=== PATIENT | male | born 1940 | race American Indian/Alaskan Native ===

== ENCOUNTER 2017-04-04 08:52 | Emergency (ER) | payer MEDICARE ==
[2017-04-04 09:21] VITALS: BP 107/77
--- NOTE | 2017-04-04 09:28 | Emergency Department Report ---
Chief Complaint: Pain General Stated Complaint: CONSTIPATED Time Seen by Provider: 04/04/17 09:25 - HPI History of Present Illness: elderly ill appearing male states had prost bph before sign weight loss in 1 y thin here w constipation no abd pain no n/v/d no bm in 8 d on mir[facility] concern for [facility] - ROS Review of Systems: see above - Exam Vital Signs: Vital Signs 04/04/17 09:17 Temperature 97.4 F L Pulse Rate 80 Respiratory 16 Rate Blood Pressure 107/77 O2 Sat by Pulse 98 Oximetry MSE screening note: Focused history and physical exam performed. Due to findings the following was ordered: ED Disposition for MSE Condition: Stable
[2017-04-04 10:02] LABS: Basophils % (Auto) 0.2 % (0.0-1.8); Eosinophils % (Auto) 2.4 % (0.0-4.3); Hematocrit 38.6 % (35.5-45.6); Hemoglobin 12.6 gm/dl (11.8-15.2); Mean Corpuscular HGB Conc 33 % (32-34); Mean Corpuscular Hemoglobin 29 pg (28-32); Mean Corpuscular Volume 89 fl (84-94); Platelet Count 196 K/mm3 (140-440); Red Blood Count 4.34 M/mm3 (3.65-5.03); White Blood Count 6.2 K/mm3 (4.5-11.0)
[2017-04-04 10:21] LABS: Alanine Aminotransferase 9 units/L (7-56); Albumin/Globulin Ratio 1.1 %; Alkaline Phosphatase 76 units/L (35-129); Amylase 90 units/L (27-131); Anion Gap 15 mmol/L; BUN/Creatinine Ratio 13.63; Bilirubin,Direct < 0.2 mg/dL (0-0.2); Blood Urea Nitrogen 15 mg/dL (9-20); Calcium 9.7 mg/dL (8.4-10.2); Carbon Dioxide 30 mmol/L (22-30); Chloride 101.9 mmol/L (98-107); Glucose 91 mg/dL (75-100); Lipase 27 units/L (13-60); Potassium 4.6 mmol/L (3.6-5.0); Sodium 142 mmol/L (137-145); Total Protein 7.6 g/dL (6.3-8.2)
--- NOTE | 2017-04-04 11:16 | XRay Report ---
Abdominal series: History: Constipation. Findings: No acute lung changes. No free intraperitoneal air. No bowel distention or wall thickening. No fluid levels. No radiopaque calculus or abnormal calcification. Impression: Essentially negative abdominal series.
--- NOTE | 2017-04-08 19:52 | ED Elopement Review ---
ED Pt Elopement review - Results review Lab results: Laboratory Tests 04/04/17 04/04/17 09:42 09:42 WBC 6.2 RBC 4.34 Hgb 12.6 Hct 38.6 MCV 89 MCH 29 MCHC 33 RDW 14.0 Plt Count 196 Lymph % (Auto) 28.1 [place] % (Auto) 5.3 Eos % (Auto) 2.4 Baso % (Auto) 0.2 Lymph # 1.7 [place] # 0.3 Eos # 0.1 Baso # 0.0 Seg Neutrophils % 64.0 Seg Neutrophils # 3.9 Sodium 142 Potassium 4.6 Chloride 101.9 Carbon Dioxide 30 Anion Gap 15 BUN 15 Creatinine 1.1 Estimated GFR > 60 BUN/Creatinine Ratio 13.63 Glucose 91 Calcium 9.7 Total Bilirubin 0.40 Direct Bilirubin < 0.2 AST 16 ALT 9 Alkaline Phosphatase 76 Total Protein 7.6 Albumin 4.0 Albumin/Globulin Ratio 1.1 Amylase 90 Lipase 27 - Call Back decision Pt Call Back Decision: Call pt to return to ED ANDREW (call back to check on patient)
== END 2017-04-04 20:30 | disposition left against medical advice (07) ==
LOC: ED 08:52
DX: K59.00 Constipation, unspecified (principal); Z53.21 Procedure and treatment not carried out due to patient leaving prior to being seen by health care provider
CPT/HCPCS: 36415; 74022; 80048; 80074; 82150; 83690; 85025

== ENCOUNTER 2018-05-17 08:30 | Emergency (ER) | payer SELFPAY ==
--- NOTE | 2018-05-17 10:49 | Emergency Department Report ---
ED General Adult HPI - General Chief complaint: Nausea/Vomiting/Diarrhea Stated complaint: RIGHT SIDE PAIN/NAUSEA Time Seen by Provider: 05/17/18 10:28 Source: patient Mode of arrival: Ambulatory Limitations: No Limitations - History of Present Illness Initial comments: Patient is a 77-year-old Stateless male with no significant past medical history who is coming in today complaining of some mild nausea this morning. Patient also is complaining of some progressively worsening resting tremor and shuffling gait has been worsening for greater than 1 month. Patient denies any vomiting diarrhea cough cold congestion headache fevers chills neck stiffness dysuria or urinary frequency or abdominal pain or chest pain at this time. [facility] and has an appointment to see his primary care physician coming up soon. - Related Data Previous Rx's Medication Instructions Recorded Last Taken Type ALPRAZolam [Xanax TAB] 0.25 mg PO BID PRN #6 tab 05/17/18 Unknown Rx Ondansetron [Zofran Odt] 4 mg PO Q8HR PRN #6 tab.rapdis 05/17/18 Unknown Rx Allergies Allergy/AdvReac Type Severity Reaction Status Date / Time No Known Allergies Allergy Verified 09/15/16 06:20 ED Review of Systems ROS: Stated complaint: RIGHT SIDE PAIN/NAUSEA Other details as noted in HPI Comment: All other systems reviewed and negative ED Past Medical Hx - Past Medical History Additional medical history: hypotension, constipation - Surgical History Past Surgical History?: No - Social History Smoking Status: Never Smoker Substance Use Type: None - Medications Home Medications: Home Medications Medication Instructions Recorded Confirmed Last Taken Type ALPRAZolam [Xanax TAB] 0.25 mg PO BID PRN #6 tab 05/17/18 Unknown Rx Ondansetron [Zofran Odt] 4 mg PO Q8HR PRN #6 tab.rapdis 05/17/18 Unknown Rx ED Physical Exam - General Limitations: No Limitations General appearance: alert, in no apparent distress - Head Head exam: Present: atraumatic, normocephalic - Eye Eye exam: Present: normal appearance - ENT ENT exam: Present: mucous membranes moist - Neck Neck exam: Present: normal inspection - Respiratory Respiratory exam: Present: normal lung sounds bilaterally. Absent: respiratory distress, wheezes, rales, rhonchi - Cardiovascular Cardiovascular Exam: Present: regular rate, normal rhythm, normal heart sounds. Absent: systolic murmur, diastolic murmur, rubs, gallop - GI/Abdominal GI/Abdominal exam: Present: soft, normal bowel sounds. Absent: distended, tenderness, guarding, rebound - Rectal Rectal exam: Present: deferred - Extremities Exam Extremities exam: Present: normal inspection - Back Exam Back exam: Present: normal inspection - Neurological Exam Neurological exam: Present: alert, oriented X3, CN II-XII intact, abnormal gait (shuffling ), other (resting tremor r>l). Absent: motor sensory deficit - Psychiatric Psychiatric exam: Present: normal affect, normal mood - Skin Skin exam: Present: warm, dry, intact, normal color. Absent: rash ED Course Vital Signs 05/17/18 09:12 Temperature 97.9 F Pulse Rate 82 Respiratory 15 Rate Blood Pressure 114/39 O2 Sat by Pulse 100 Oximetry ED Medical Decision Making - Medical Decision Making Patient most likely has early mild Parkinson's disease. This has not been formally diagnosed however. Patient be referred to [facility]ist [facility] and patient will be discharged home. Patient to give Zofran for mild nausea patient has Critical care attestation.: If time is entered above; I have spent that time in minutes in the direct care of this critically ill patient, excluding procedure time. ED Disposition Clinical Impression: Tremor Disposition: DC-01 TO HOME OR SELFCARE Is pt being admited?: No Does the pt Need Aspirin: No Condition: Stable Instructions: Parkinson's Disease (ED) Additional Instructions: He has not been formally diagnosed with Parkinson's disease however this is most likely given the shuffling gait and resting tremor. Please follow-up with neurology with the [facility] Prescriptions: ALPRAZolam [Xanax TAB] 0.25 mg PO BID PRN #6 tab PRN Reason: Anxiety Ondansetron [Zofran Odt] 4 mg PO Q8HR PRN #6 tab.rapdis PRN Reason: Nausea Referrals: PRIMARY CARE,MD [Primary Care Provider] - 3-5 Days Time of Disposition: 10:48
[2018-05-17 11:02] VITALS: BP 106/50
== END 2018-05-17 10:50 | disposition home or self-care (01) ==
LOC: ED 08:30
DX: R25.1 Tremor, unspecified (principal); R11.2 Nausea with vomiting, unspecified; I95.9 Hypotension, unspecified
CPT/HCPCS: 99282

== ENCOUNTER 2019-11-11 20:02 | Emergency (ER) | payer OTHER ==
[2019-11-12] MEDS ORDERED: ASPIRIN 325 MG TAB PO ONE (02:18)
[2019-11-12 03:01] LABS: Basophils % (Auto) 0.3 % (0.0-1.8); Eosinophils # (Auto) 0.3 K/mm3 (0.0-0.4); Eosinophils % (Auto) 3.2 % (0.0-4.3); Hematocrit 35.3 % (35.5-45.6); Hemoglobin 11.8 gm/dl (11.8-15.2); Lymphocytes # (Auto) 2.2 K/mm3 (1.2-5.4); Lymphocytes % (Auto) 27.5 % (13.4-35.0); Mean Corpuscular HGB Conc 34 % (32-34); Mean Corpuscular Volume 90 fl (84-94); Monocytes # (Auto) 0.5 K/mm3 (0.0-0.8); Monocytes % (Auto) 6.7 % (0.0-7.3); Platelet Count 244 K/mm3 (140-440); Red Blood Count 3.91 M/mm3 (3.65-5.03); Red Cell Distribution Width 13.2 % (13.2-15.2)
--- NOTE | 2019-11-12 03:08 | XRay Report ---
CHEST 1 VIEW 11/12/2019 2:42 AM INDICATION / CLINICAL INFORMATION: Chest Pain. COMPARISON: Acute abdominal series from 04/04/2017. FINDINGS: SUPPORT DEVICES: None. HEART / MEDIASTINUM: No significant abnormality. LUNGS / PLEURA: No significant pulmonary or pleural abnormality. No pneumothorax. ADDITIONAL FINDINGS: No significant additional findings. IMPRESSION: 1. No acute abnormality of the chest. Signer Name: Michael Stephen MD Signed: 11/12/2019 3:04 AM Workstation Name: [id number]
[2019-11-12 03:22] LABS: BUN/Creatinine Ratio 13; Blood Urea Nitrogen 12 mg/dL (9-20); Calcium 9.9 mg/dL (8.4-10.2); Hemolysis Index 3
--- NOTE | 2019-11-12 06:40 | Emergency Department Report ---
ED General Adult HPI - General Chief complaint: Extremity Injury, Lower Stated complaint: SWELLING ON BOTH LEG AND FOOT Time Seen by Provider: 11/12/19 06:17 Source: patient Mode of arrival: Ambulatory Limitations: No Limitations - History of Present Illness Initial comments: The patient presents to the emergency department with a chief complaint of swo llen of his feet. Patient states the symptoms started 10 days ago and have not gone away. Patient states she's never had issues with swelling of his feet. Patient denies shortness of breath with ambulation, chest pain, abdominal pain. -: Sudden Location: lower extremity Radiation: non-radiation Severity scale (0 -10): 1 Quality: aching Consistency: constant Improves with: none Worsens with: none Associated Symptoms: denies other symptoms Treatments Prior to Arrival: none - Related Data Previous Rx's Medication Instructions Recorded Last Taken Type ALPRAZolam [Xanax TAB] 0.25 mg PO BID PRN #6 tab 05/17/18 Unknown Rx Ondansetron [Zofran Odt] 4 mg PO Q8HR PRN #6 tab.rapdis 05/17/18 Unknown Rx hydroCHLOROthiazide [Hctz] 12.5 mg PO QDAY #5 capsule 11/12/19 Unknown Rx Allergies Allergy/AdvReac Type Severity Reaction Status Date / Time No Known Allergies Allergy Verified 09/15/16 06:20 ED Review of Systems ROS: Stated complaint: SWELLING ON BOTH LEG AND FOOT Other details as noted in HPI Constitutional: denies: chills, fever Eyes: denies: eye pain, eye discharge, vision change ENT: denies: ear pain, throat pain Respiratory: denies: cough, shortness of breath, wheezing Cardiovascular: denies: chest pain, palpitations Endocrine: no symptoms reported Gastrointestinal: denies: abdominal pain, nausea, diarrhea Genitourinary: denies: urgency, dysuria Musculoskeletal: denies: back pain, joint swelling, arthralgia Skin: denies: rash, lesions Neurological: denies: headache, weakness, paresthesias Psychiatric: denies: anxiety, depression Hematological/Lymphatic: denies: easy bleeding, easy bruising ED Past Medical Hx - Past Medical History Previous Medical History?: Yes Additional medical history: hypotension, constipation. Parkinson's - Surgical History Past Surgical History?: No - Social History Smoking Status: Never Smoker Substance Use Type: None - Medications Home Medications: Home Medications Medication Instructions Recorded Confirmed Last Taken Type ALPRAZolam [Xanax TAB] 0.25 mg PO BID PRN #6 tab 05/17/18 Unknown Rx Ondansetron [Zofran Odt] 4 mg PO Q8HR PRN #6 tab.rapdis 05/17/18 Unknown Rx hydroCHLOROthiazide [Hctz] 12.5 mg PO QDAY #5 capsule 11/12/19 Unknown Rx ED Physical Exam - General Limitations: No Limitations General appearance: alert, in no apparent distress - Head Head exam: Present: atraumatic, normocephalic - Eye Eye exam: Present: normal appearance, PERRL, EOMI - ENT ENT exam: Present: mucous membranes moist - Neck Neck exam: Present: normal inspection - Respiratory Respiratory exam: Present: normal lung sounds bilaterally. Absent: respiratory distress - Cardiovascular Cardiovascular Exam: Present: regular rate, normal rhythm. Absent: systolic murmur, diastolic murmur, rubs, gallop - GI/Abdominal GI/Abdominal exam: Present: soft, normal bowel sounds. Absent: distended, tenderness - Rectal Rectal exam: Present: deferred - Extremities Exam Extremities exam: Present: pedal edema (bilateral pedal edema) - Back Exam Back exam: Present: normal inspection - Neurological Exam Neurological exam: Present: alert, oriented X3, CN II-XII intact. Absent: motor sensory deficit - Psychiatric Psychiatric exam: Present: normal affect, normal mood - Skin Skin exam: Present: warm, dry, intact, normal color. Absent: rash ED Course Vital Signs 11/11/19 11/11/19 11/12/19 21:04 21:05 02:08 Temperature 98.0 F 97.5 F L Pulse Rate 69 62 Respiratory 18 18 Rate Blood Pressure 146/93 Blood Pressure 117/34 118/58 [Right] O2 Sat by Pulse 98 98 Oximetry 11/12/19 06:59 Temperature Pulse Rate 91 H Respiratory 18 Rate Blood Pressure Blood Pressure 131/78 [Right] O2 Sat by Pulse 99 Oximetry ED Medical Decision Making - Lab Data Result diagrams: 11/12/19 02:32 11/12/19 02:32 Lab Results 11/12/19 11/12/19 11/12/19 Range/Units 02:32 02:32 06:00 WBC 7.9 (4.5-11.0) K/mm3 RBC 3.91 (3.65-5.03) M/mm3 Hgb 11.8 (11.8-15.2) gm/dl Hct 35.3 L (35.5-45.6) % MCV 90 (84-94) fl MCH 30 (28-32) pg MCHC 34 (32-34) % RDW 13.2 (13.2-15.2) % Plt Count 244 (140-440) K/mm3 Lymph % (Auto) 27.5 (13.4-35.0) % [place] % (Auto) 6.7 (0.0-7.3) % Eos % (Auto) 3.2 (0.0-4.3) % Baso % (Auto) 0.3 (0.0-1.8) % Lymph # 2.2 (1.2-5.4) K/mm3 [place] # 0.5 (0.0-0.8) K/mm3 Eos # 0.3 (0.0-0.4) K/mm3 Baso # 0.0 (0.0-0.1) K/mm3 Seg Neutrophils % 62.3 (40.0-70.0) % Seg Neutrophils # 4.9 (1.8-7.7) K/mm3 Sodium 140 (137-145) mmol/L Potassium 4.1 (3.6-5.0) mmol/L Chloride 99.5 (98-107) mmol/L Carbon Dioxide 29 (22-30) mmol/L Anion Gap 16 mmol/L BUN 12 (9-20) mg/dL Creatinine 0.9 (0.8-1.5) mg/dL Estimated GFR > 60 ml/min BUN/Creatinine Ratio 13 % Glucose 97 (75-100) mg/dL Calcium 9.9 (8.4-10.2) mg/dL Troponin T < 0.010 < 0.010 (0.00-0.029) ng/mL NT-Pro-B Natriuret Pep (0-900) pg/mL 11/12/19 Range/Units 06:00 WBC (4.5-11.0) K/mm3 RBC (3.65-5.03) M/mm3 Hgb (11.8-15.2) gm/dl Hct (35.5-45.6) % MCV (84-94) fl MCH (28-32) pg MCHC (32-34) % RDW (13.2-15.2) % Plt Count (140-440) K/mm3 Lymph % (Auto) (13.4-35.0) % [place] % (Auto) (0.0-7.3) % Eos % (Auto) (0.0-4.3) % Baso % (Auto) (0.0-1.8) % Lymph # (1.2-5.4) K/mm3 [place] # (0.0-0.8) K/mm3 Eos # (0.0-0.4) K/mm3 Baso # (0.0-0.1) K/mm3 Seg Neutrophils % (40.0-70.0) % Seg Neutrophils # (1.8-7.7) K/mm3 Sodium (137-145) mmol/L Potassium (3.6-5.0) mmol/L Chloride (98-107) mmol/L Carbon Dioxide (22-30) mmol/L Anion Gap mmol/L BUN (9-20) mg/dL Creatinine (0.8-1.5) mg/dL Estimated GFR ml/min BUN/Creatinine Ratio % Glucose (75-100) mg/dL Calcium (8.4-10.2) mg/dL Troponin T (0.00-0.029) ng/mL NT-Pro-B Natriuret Pep 146.2 (0-900) pg/mL - EKG Data -: EKG Interpreted by Me EKG shows normal: sinus rhythm Rate: bradycardia - Radiology Data Radiology results: report reviewed - Medical Decision Making Discussed results with patient Critical care attestation.: If time is entered above; I have spent that time in minutes in the direct care of this critically ill patient, excluding procedure time. ED Disposition Clinical Impression: Dependent edema, Pedal edema Disposition: DC-01 TO HOME OR SELFCARE Is pt being admited?: No Does the pt Need Aspirin: No Condition: Stable Instructions: Leg Edema (ED) Additional Instructions: return if worse Prescriptions: hydroCHLOROthiazide [Hctz] 12.5 mg PO QDAY #5 capsule Referrals: PRIMARY CARE,MD [Primary Care Provider] - 3-5 Days [facility] [Provider Group] - 3-5 Days [facility] [Provider Group] - 3-5 Days Time of Disposition: 08:28
[2019-11-12 07:01] VITALS: BP 131/78
== END 2019-11-12 09:10 | disposition home or self-care (01) ==
LOC: ED 20:02
DX: R60.9 Edema, unspecified (principal); I95.9 Hypotension, unspecified; Z79.899 Other long term (current) drug therapy
CPT/HCPCS: 36415; 71045; 80048; 83880; 84484; 85025; 93005; 93010

== ENCOUNTER 2021-11-04 00:36 | Emergency (ER) | payer OTHER ==
[2021-11-04 01:51] VITALS: BP 98/71
[2021-11-04] MEDS ORDERED: GENTAMICIN 0.3% OPHTH OINT 3.5 GM OU ONE (02:08)
[2021-11-04] MEDS ORDERED: TETRACAINE 0.5% OPHTH SOLN 4ML OU PRN (02:08)
--- NOTE | 2021-11-04 03:45 | Emergency Department Report ---
ED Eye Problem HPI - General Chief complaint: Eye Problems Stated complaint: EYE INFECTION Source: patient Mode of arrival: Ambulatory Limitations: No Limitations - History of Present Illness Initial comments: Patient is an 81-year-old -[place] male with a history of Parkinson's disease who presents to the ED with complaint of acute onset persistent left eye pain with subconjunctival hemorrhage after a accidentally rubbed his left eye 3 days ago. Patient states that the pain has been persistent and that the redness and the hemorrhage has not resolved. Patient states that he has been applying [id number] eyedrops with no relief. Patient denies vision loss, headache, dizziness, syncope, chest pain or shortness of breath, neck pain, nausea and vomiting, fever and chills. MD chief complaint: eye pain (left eye pain, erythematous conjunction), eye redness -: Sudden, days(s) (3) Location: left eye Place: home If Injury: none Eye Symptoms: redness, pain Severity: mild Severity scale (0 -10): 1 If Pain, Quality: aching Consistency: constant Associated Symptoms: none Treatments Prior to Arrival: OTC eye drops - Related Data Patient Tetanus UTD: Yes Previous Rx's Medication Instructions Recorded Last Taken Type ALPRAZolam [Xanax TAB] 0.25 mg PO BID PRN #6 tab 05/17/18 Unknown Rx Ondansetron [Zofran Odt] 4 mg PO Q8HR PRN #6 tab.rapdis 05/17/18 Unknown Rx hydroCHLOROthiazide [Hctz] 12.5 mg PO QDAY #5 capsule 11/12/19 Unknown Rx Acetaminophen [Tylenol] 500 mg PO Q6HR PRN #30 tablet 11/04/21 Unknown Rx Allergies Allergy/AdvReac Type Severity Reaction Status Date / Time No Known Allergies Allergy Verified 09/15/16 06:20 ED Review of Systems ROS: Stated complaint: EYE INFECTION Other details as noted in HPI Constitutional: denies: chills, fever Eyes: eye pain (Mild left eye pain with discharge), eye discharge (Left eye discharge), other (Left subconjunctival hemorrhage). denies: vision change ENT: denies: ear pain, throat pain, congestion Respiratory: denies: cough, shortness of breath, wheezing Cardiovascular: denies: chest pain, palpitations Endocrine: no symptoms reported Gastrointestinal: denies: abdominal pain, nausea, diarrhea Genitourinary: denies: urgency, dysuria Musculoskeletal: denies: back pain, joint swelling, arthralgia Skin: denies: rash, lesions Neurological: denies: headache, weakness, paresthesias Psychiatric: denies: anxiety, depression Hematological/Lymphatic: denies: easy bleeding, easy bruising ED Past Medical Hx - Past Medical History Previous Medical History?: Yes Additional medical history: hypotension, constipation. Parkinson's - Surgical History Past Surgical History?: Yes - Social History Smoking Status: Never Smoker Substance Use Type: None - Medications Home Medications: Home Medications Medication Instructions Recorded Confirmed Last Taken Type ALPRAZolam [Xanax TAB] 0.25 mg PO BID PRN #6 tab 05/17/18 Unknown Rx Ondansetron [Zofran Odt] 4 mg PO Q8HR PRN #6 tab.rapdis 05/17/18 Unknown Rx hydroCHLOROthiazide [Hctz] 12.5 mg PO QDAY #5 capsule 11/12/19 Unknown Rx Acetaminophen [Tylenol] 500 mg PO Q6HR PRN #30 tablet 11/04/21 Unknown Rx ED Physical Exam - General Limitations: No Limitations General appearance: alert, in no apparent distress - Head Head exam: Present: atraumatic, normocephalic, normal inspection - Eye Eye exam: Present: normal appearance, PERRL, EOMI, other (Erythematous left subconjunctival hemorrhage; normal visual acuity; mildly swollen left upper and lower eyelids with irritation and purulent discharge) Pupils: Present: normal accommodation - ENT ENT exam: Present: normal exam, normal orophraynx, mucous membranes moist, TM's normal bilaterally, normal external ear exam - Neck Neck exam: Present: normal inspection, full ROM. Absent: tenderness - Respiratory Respiratory exam: Present: normal lung sounds bilaterally. Absent: respiratory distress, wheezes, rales, stridor, chest wall tenderness, accessory muscle use, decreased breath sounds, prolonged expiratory - Cardiovascular Cardiovascular Exam: Present: regular rate, normal rhythm, normal heart sounds. Absent: systolic murmur, diastolic murmur, rubs, gallop - GI/Abdominal GI/Abdominal exam: Present: soft, normal bowel sounds. Absent: tenderness, guarding, rebound, hyperactive bowel sounds, hypoactive bowel sounds, organomegaly - Extremities Exam Extremities exam: Present: normal inspection, full ROM, normal capillary refill - Back Exam Back exam: Present: normal inspection, full ROM. Absent: tenderness, CVA tenderness (R), CVA tenderness (L), muscle spasm, paraspinal tenderness, vertebral tenderness - Neurological Exam Neurological exam: Present: alert, oriented X3, CN II-XII intact, normal gait, reflexes normal - Psychiatric Psychiatric exam: Present: normal affect, normal mood - Skin Skin exam: Present: warm, dry, intact, normal color. Absent: rash ED Course Vital Signs 11/04/21 11/04/21 01:43 04:25 Temperature 98.0 F Pulse Rate 74 77 Respiratory 18 20 Rate Blood Pressure 98/71 [Right] O2 Sat by Pulse 98 97 Oximetry ED Medical Decision Making - Medical Decision Making This is an 81-year-old -[place] male with a history of Parkinson's disease who presents to the ED with complaint of acute onset persistent left eye pain with subconjunctival hemorrhage after a accidentally rubbed his left eye 3 days ago. Patient states that the pain has been persistent and that the redness and the hemorrhage has not resolved. Patient states that he has been applying [id number] eyedrops with no relief. In the ED, patient is alert and oriented x3 and is not in distress. Based on the history and physical exam findings, the patient was discharged home on antibiotic ophthalmic ointment and advised to follow-up with his primary care physician in 5 to 7 days for reevaluation. Patient was also given a referral to the glass artist Dr. Kenzie Muniz for follow up. He was advised to contact Dr. Muniz's office first thing in the morning to schedule a follow-up appointment. Patient was advised return to the ED immediately if symptoms get worse. - Differential Diagnosis Conjunctivitis; subconjunctival hemorrhage; Critical care attestation.: If time is entered above; I have spent that time in minutes in the direct care of this critically ill patient, excluding procedure time. ED Disposition Clinical Impression: Traumatic subconjunctival hemorrhage of left eye Acute conjunctivitis, left eye Qualifiers: Acute conjunctivitis type: unspecified Qualified Code(s): H10.32 - Unspecified acute conjunctivitis, left eye Disposition: HOME / SELF CARE / HOMELESS Is pt being admited?: No Does the pt Need Aspirin: No Condition: Stable Instructions: Bacterial Conjunctivitis, Adult, How to Use Eye Drops and Eye Ointments, Subconjunctival Hemorrhage Additional Instructions: Apply the medication to the affected eye as advised, drink plenty of fluids and follow-up with the glass artist as advised in 3 to 5 days for reevaluation. Return to the ED immediately if symptoms get worse. Prescriptions: Acetaminophen [Tylenol] 500 mg PO Q6HR PRN #30 tablet PRN Reason: Pain , Severe (7-10) Referrals: REGINE BOWMAN MD [Staff Physician] - 3-5 Days Time of Disposition: 03:44 Print Language: BULGARIAN
== END 2021-11-04 04:25 | disposition home or self-care (01) ==
LOC: ED 00:36
DX: H11.32 Conjunctival hemorrhage, left eye (principal); H10.32 Unspecified acute conjunctivitis, left eye; Z79.899 Other long term (current) drug therapy; Z98.890 Other specified postprocedural states
CPT/HCPCS: 99282